=== PATIENT | male | born 1950 | race Caucasian/White ===

== ENCOUNTER 2018-02-24 11:54 | Emergency (ER) | payer OTHER ==
[2018-02-24] MEDS: FLUORESCEIN OPHTH TEST STRIP. OU (12:29)
[2018-02-24] MEDS: TETRACAINE 0.5% OPHTH SOLUTION 4ML BOTTLE. OU (12:29)
== END 2018-02-24 14:08 | disposition home or self-care (01) ==
LOC: ER 11:54
DX: H53.8 Other visual disturbances (principal); I10 Essential (primary) hypertension; Z88.1 Allergy status to other antibiotic agents
CPT/HCPCS: 99283